=== PATIENT | female | born 1950 | race Caucasian/White ===

== ENCOUNTER 2017-06-22 07:19 | Day surgery (SDC) | payer OTHER, MEDICARE ==
[~2017-06-22] VITALS: Ht 157.5 cm; Wt 80.7 kg
[2017-06-22] MEDS ORDERED: LISINOPRIL40 MG PO (07:46)
[2017-06-22] MEDS ORDERED: PRAVACHOL10 MG PO (07:51)
[2017-06-22] MEDS ORDERED: MICROZIDE12.5 M1 PO (07:52)
[2017-06-22] MEDS ORDERED: FISH OIL 1,2001 EAC4 PO (07:53)
[2017-06-22 08:07] VITALS: BP 159/70
[2017-06-22 11:13] VITALS: BP 110/54
[2017-06-22 12:16] VITALS: BP 120/70
== END 2017-06-22 12:25 | disposition home or self-care (01) ==
LOC: SDC
DX: N95.8 Other specified menopausal and perimenopausal disorders (principal); N73.6 Female pelvic peritoneal adhesions (postinfective); N72 Inflammatory disease of cervix uteri; I10 Essential (primary) hypertension; Z79.82 Long term (current) use of aspirin; Z88.0 Allergy status to penicillin; Z88.2 Allergy status to sulfonamides
CPT/HCPCS: 88305; J0690; J1100; J1170; J1885; J2405; J3010